=== PATIENT | male | born 1940 | race African-American/Black ===

== ENCOUNTER 2017-01-12 23:52 | Emergency (ER) | payer MEDICARE, OTHER ==
[~2017-01-12 23:52] MED LIST: *UNABLE1; AMB5 PO; ASAB PO; COREG12 PO; COREG25 PO; COREG6 PO; HALF81 PO; L40 PO; L80 PO; MIRALAXPKT PO; MIRAPEX125 PO; NEUPRO 4MG4 MG/24 HR TOP; NORCO1 TA1 PO; PRAVACHOL40 MG PO; SIN-CR PO; TUMSROLL PO; ZOFRAN4 PO; ZOFRANODT8 PO
[2017-01-13 03:20] LABS: BASOPHILS 0.3 %; BASOPHILS ABSOLUTE 0.02 10/3/uL (0.0-0.16); EOSINOPHILS 1.8 %; EOSINOPHILS ABSOLUTE 0.11 10/3/uL (0.0-0.53); ER CBC TAT 0 Hrs 05 Mins; HEMATOCRIT 29.9 % (40.0-51.0); HEMOGLOBIN 10.1 g/dL (13.6-17.8); IMMATURE GRANULOCYTES 0.2 %; IMMATURE GRANULOCYTES ABSOLUTE 0.01 10/3/uL (0.0-0.11); LYMPHOCYTES 32.7 %; LYMPHOCYTES ABSOLUTE 1.98 10/3/uL (0.67-4.30); MEAN CORPUS HGB CONC 33.8 g/dL (32.0-36.0); MEAN CORPUSCULAR HEMOGLOB 33.1 pg (26.0-34.0); MEAN PLATELET VOLUME 9.4 fL (9.2-13.0); MONOCYTES 5.8 %; MONOCYTES ABSOLUTE 0.35 10/3/uL (0.21-1.20); NEUTROPHILS 59.2 %; NEUTROPHILS ABSOLUTE 3.59 10/3/uL (2.02-8.40); PLATELET COUNT 237 10/3/uL (150-400); RBC DISTRIBUTION WIDTH 13.2 % (12.0-16.0); RED CELL COUNT 3.05 10/6/uL (4.7-6.1); WHITE BLOOD CELLS 6.1 10/3/uL (4.5-10.5)
[2017-01-13 03:21] LABS: MANUAL DIFF NO %
[2017-01-13 03:36] LABS: INTERNATIONAL NORMAL RATI 1.2 UNITS (-); PARTIAL THROMBO TIME 32.9 SEC (22.5-37.2); PROTIME (NOT ORD) 14.6 SEC (12.0-14.5)
[2017-01-13 03:38] LABS: CALCIUM, SERUM 8.7 MG/DL (8.5-10.4); CHLORIDE, SERUM 104 MMOL/L (96-112); CO2 (CARBON DIOXIDE) 30 MMOL/L (24-34); GLUCOSE, SERUM 96 MG/DL (60-99); POTASSIUM, SERUM 5.3 MMOL/L (3.5-5.3); SODIUM, SERUM 142 MMOL/L (135-148)
[2017-01-13 03:41] LABS: BUN (BLOOD UREA NITROGEN) 45 MG/DL (6-23); GFR AFRICAN AMERICAN 6 ML/MIN (>=60); GFR NON AFRICAN AMERICAN 5 ML/MIN (>=60)
[2017-01-13 03:42] LABS: CHEST PAIN PROFILE TAT 0 Hrs 27 Mins; TROPONIN I 0.05 NG/ML (<0.05)
== END 2017-01-13 05:35 | disposition home or self-care (01) ==
LOC: ER 23:52
PROVIDERS: Specialist
DX: I12.0 Hypertensive chronic kidney disease with stage 5 chronic kidney disease or end stage renal disease (principal); N18.6 End stage renal disease; D63.8 Anemia in other chronic diseases classified elsewhere; G20 Parkinson's disease; Z79.82 Long term (current) use of aspirin; Z99.2 Dependence on renal dialysis; Z79.899 Other long term (current) drug therapy
CPT/HCPCS: 70450; 71010; 80048; 83735; 84484; 85025; 85610; 85730; 93005; 99285

== ENCOUNTER 2017-03-03 16:52 | Inpatient (IN) | payer MEDICARE, OTHER ==
--- NOTE | ~2017-03-03 | DS ---
Discharge Summary [facility] [address] [facility] [address] [place]. [address] NAME: BHAVNA SCHAFER : 42 STATUS : DIS IN PAT#: [id number] AGE: 76 ADM/REG DATE : 03/05/17 MR#: [id number] REPORT SERV DATE: 03/27/17 DICTATED BY: JORGE CARD DATE: 03/27/17 REPORT STATUS : Draft TRANSCRIBED BY: TORY DATE: 03/27/17 Data Collection from hospitalization DISCHARGE DIAGNOSIS(ES): 1. Parkinson disease with severe debility symptoms. 2. Vox-bpnwppy-ivzwydnxq diabetes mellitus. 3. Hypertension. 4. End-stage renal disease. CONSULTATIONS: Erica Wren DNP, ACNP-BC PROCEDURES PERFORMED: None. MEDICATIONS: Aspirin 81 mg daily every morning, Dulcolax 10 mg per rectum daily, Coreg 12.5 mg twice a day as instructed, vitamin B12 of 1000 mcg sublingually daily, CoQ10 of 200 mg daily, multivitamins with minerals one tablet daily, Theragran one tablet daily, Neupro 4 mg topically at bedtime, Tylenol 650 mg as needed, Dulcolax 10 mg per rectum daily as needed, and Zofran 4 mg at bedtime as needed. CONDITION AT DISCHARGE: Stable. DISPOSITION: The patient was discharged to [facility] with diet and activities as instructed. HOSPITAL COURSE: This is a 76-year-old man who dialyzes on Mondays, Wednesdays, and Fridays via a left upper arm AV fistula. He has severe Parkinson disease and wears a Neupro patch. He had had some upward titration of his patch recently. Evidently, additional parkinsonian medications were tried, but he developed nausea. The patch was increased to try and help with his symptoms. He has had global weakness over the past few days and had missed dialysis on the day of this admission. He denied any nausea, vomiting, or diarrhea. He denied any focal weakness. He said that he was just globally weak and difficult to ambulate. He was admitted to the hospital at this time for further evaluation and treatment. Upon admission, we were concerned that upward titration of his Neupro patch may be the cause of his global weakness. No other focal lesion was yet to be found. Dialysis would be performed the following day. We were going to check orthostatic vital signs and thyroid function studies. Repeat troponin would be obtained the following morning. Home medications were continued for now. The patient was seen in consultation by Erica Wren regarding Parkinson disease and the recent onset of weakness. The patient sees Dr. Louis Zhu. He had been diagnosed with Parkinson disease four or five years ago. The patient had tried carbidopa and levodopa but was intolerant of this medication. It caused significant nausea and vomiting. He had tried Mirapex and Requip but was unable to tolerate those medications. He was currently on a Neupro patch and seemed to be doing fairly well with this medication. His patch had been increased about three weeks ago, and he gradually seemed to be getting "weaker." He also complained of more nausea. The patient said that he started to have more movement in his right arm and lower jaw. He was felt to be mildly anemic with a hemoglobin of 10.8 and hematocrit of 32. Creatinine level was 8.46. Troponin Discharge Summary [address] [address] NAME: BHAVNA SCHAFER : 42 STATUS : DIS IN PAT#: [id number] AGE: 76 ADM/REG DATE : 03/05/17 MR#: [id number] REPORT SERV DATE: 03/27/17 DICTATED BY: JORGE CARD DATE: 03/27/17 REPORT STATUS : Draft TRANSCRIBED BY: TORY DATE: 03/27/17 was 0.07 and 0.12 consecutively. The Neupro patch was decreased due to his intolerance, dyskinesia, and nausea. If the patient was underdosed by the following day, we would advance his patch dosing up to 6 mg per day. The patient was instructed to follow up on an outpatient basis with Dr. Zhu for further evaluation and dosage changes. Orthostatic vital signs were checked. The patient was evaluated by Physical Therapy. The patient became a full admit on the . The following day, there was some mild improvement in his weakness according to the patient, but not much. He has left dyskinesia, on Neupro 4 mg per day. He had mild lower extremity edema. It was difficult to tell if the patient's disease was progressively worsening. It was felt that it would be best to evaluate this when the patient was well as an outpatient. On the , hemodialysis therapy was performed. His lungs remained clear. He had less edema. He had no new complaints. The following day, he was given something for his constipation. His abdomen was soft and nontender. He had decreased breath sounds in his bases. It was felt that he would need rehab. On 03/09/2017, he had no new complaints. He had not had a bowel movement in about five days. He remained stable over the next couple of days. He seemed to have good pain control. He had no chest pain, nausea, or vomiting. It was felt that it would be unsafe to care for himself at home. Discharge planning was performed. Hemodialysis therapy continued. On 03/13/2017, he had no acute complaints. He was alert and cooperative. He had no edema. Discharge instructions were given. Due to his improved and stable condition, he was discharged to [facility] with the above-stated instructions. Information collected by: Makenna Hernadez I submit the above information as my discharge summary. TG/TORY Jorge Card M.D. / [id number] CC: Annie Olsen [facility]
--- NOTE | ~2017-03-03 | HP ---
History And Physical [place] [id number] [facility] [address] [place]. [address] NAME: BHAVNA SCHAFER : 42 STATUS : ADM Juan Ramon PAT#: [id number] AGE: 76 ADM/REG DATE : 03/03/17 MR#: [id number] REPORT SERV DATE: 03/04/17 DICTATED BY: BEAU NAM V. DATE: 03/03/17 REPORT STATUS : Draft TRANSCRIBED BY: MODDeirdre DATE: 03/03/17 DATE OF ADMISSION: 03/03/2017 CHIEF COMPLAINT: Global weakness. HISTORY OF PRESENT ILLNESS: Mr. Schafer is a 76-year-old gentleman, who dialyzes Friday, Friday, Friday at the [facility] on [address] via left upper arm AV fistula. He has severe Parkinson disease and wears a Neupro patch. He has had some upward titration of this patch recently. Evidently additional parkinsonian medications were tried, but he developed nausea. The patch was increased to try to help with his symptoms. He has had global weakness for the last few days and had missed a dialysis today. Denies any nausea, vomiting, or diarrhea. Denies any focal weakness. Just states he is globally weak and difficult to ambulate. PAST MEDICAL HISTORY: 1. ESRD. 2. Parkinson disease. 3. Hypertension. 4. Diet-controlled diabetes. PAST SURGICAL HISTORY: Includes left upper arm AV fistula. SOCIAL HISTORY: He is not . Does not drink alcohol. Lives alone. FAMILY HISTORY: Remarkable for diabetes in his father. ALLERGIES: NO KNOWN DRUG ALLERGIES. OUTPATIENT MEDICATION: List includes enteric-coated aspirin 325 mg daily, Coreg twice daily, multivitamin, MiraLAX as needed, and Neupro patch, dose needs to be confirmed with the clinic pack of his dialysis clinic, however. REVIEW OF SYSTEMS: Negative, except as described above. PHYSICAL EXAMINATION: VITAL SIGNS: Temperature is 98.8, heart rate 69, blood pressure 143/66. GENERAL: He is a pleasant, elderly gentleman with no increased work of breathing. HEENT: Pupils equal, round, and reactive to light. Sclerae are anicteric. Oropharynx is clear with no lesions. NECK: Trachea midline. No thyromegaly. No supraclavicular nodes. No axillary lymph nodes. CHEST: Generally clear to auscultation with equal bilateral breath sounds. CARDIOVASCULAR: Regular rate and rhythm. No rub. ABDOMEN: Soft, nontender, nondistended. Bowel sounds are present. No hepatosplenomegaly. No lower extremity edema. History And Physical [address] [place]. [address] NAME: BHAVNA SCHAFER : 42 STATUS : ADM Juan Ramon PAT#: [id number] AGE: 76 ADM/REG DATE : 03/03/17 MR#: [id number] REPORT SERV DATE: 03/04/17 DICTATED BY: BEAU NAM V. DATE: 03/03/17 REPORT STATUS : Draft TRANSCRIBED BY: TORY DATE: 03/03/17 SKIN: Warm and dry. No rash or lesions. MUSCULOSKELETAL: No joint effusions or tenderness was appreciated in knees or ankles bilaterally. NEUROLOGICAL: He was awake and alert. Strength was symmetric throughout. Also remarkable on ENT exam, he had slightly swollen lower lip, where he did hit on accident earlier. Denies any seizure activity. LABORATORIES AND IMAGING: Chest x-ray by report was unremarkable. White count 10.9, BUN and creatinine of 61 and 13.4, potassium 4.7. Troponin was 0.07. IMPRESSION: A 76-year-old gentleman with end-stage renal disease and global weakness with history of severe Parkinson disease. I am concerned that upward titration of his Neupro patch may be the adwoa of his global weakness. No other focal lesion has yet to be found. Neurology may very well need to comment on his parkinsonian medication dosages. We also need to confirm his actual dose as there was a recent dose increase. I believe his neurologist is Dr. Zhu at [facility]. PLAN: 1. Dialysis tomorrow as he missed his treatment on Friday. 2. Check orthostatic vital signs. 3. Check thyroid function studies. 4. Repeat troponin in the morning. 5. Continue home medications for now. 6. Have PT to evaluate and treat. CP/TORY eBau Nam M.D. / [id number] CC: Tanmay Russo M.D.
--- NOTE | ~2017-03-03 | CN ---
Consultation Report [facility] [address] . [address] NAME: BHAVNA SCHAFER : 42 STATUS : ADM IN PAT#: [id number] AGE: 76 ADM/REG DATE : 03/05/17 MR#: [id number] REPORT SERV DATE: 03/05/17 DICTATED BY: ERICA PAUL DATE: 03/05/17 REPORT STATUS : Draft TRANSCRIBED BY: MODL DATE: 03/05/17 NEUROLOGY CONSULTATION DATE OF CONSULTATION: 03/05/2017 REASON FOR CONSULTATION: Parkinson disease and recent onset of weakness. PRIMARY CARE PHYSICIAN: None. DECKHAND CRAB BOAT: Dr. Russo. NEUROLOGIST: Dr. Louis Zhu. HISTORY OF PRESENT ILLNESS: The patient is a 76-year-old male, who was diagnosed with Parkinson disease four to five years ago. He sees Dr. Louis Zhu, who manages his medications. The patient has tried carbidopa, levodopa, but is intolerant of this medication. It causes significant nausea and vomiting. He has tried some of the dopamine agonist, which include Mirapex and Requip. He was also unable to tolerate those medications. The patient is currently on the Neupro patch and seemed to be doing fairly well on this medication at 6 mg a day. Three weeks ago his patch was increased to 8 mg a day, and he gradually seemed to get "weaker." He also started to complain of more nausea. When questioned more extensively, the patient stated that he started to have more movement in his right arm and lower jaw. Today, the patient underwent hemodialysis and the history was obtained while he was on hemodialysis. He stated that he felt really bad and felt it was partially due to the medication change. PAST MEDICAL HISTORY: End-stage renal disease, Parkinson disease, hypertension, diabetes (diet controlled). PAST SURGICAL HISTORY: AV fistula placement in the left arm. MEDICATIONS: Home medication list includes aspirin 325 mg daily, Coreg 25 mg b.i.d., multivitamin daily, MiraLAX one packet daily, and Neupro patch 8 mg per 24 hours topically. ALLERGIES/INTOLERANCES: Carbidopa, levodopa. SOCIAL HISTORY: The patient is single. He lives alone. He has four children. He is disabled. He does not smoke, drink alcohol, or use recreational drugs. FAMILY HISTORY: The patient's mother at the age of 91 from cancer. His father at the age of 71, cause unknown. He has one brother, who drowned. He has one brother and one sister, who suffer from cancer. Consultation Report [place] [id number] . [address] NAME: BHAVNA SCHAFER : 42 STATUS : ADM IN PAT#: [id number] AGE: 76 ADM/REG DATE : 03/05/17 MR#: [id number] REPORT SERV DATE: 03/05/17 DICTATED BY: ERICA PAUL DATE: 03/05/17 REPORT STATUS : Draft TRANSCRIBED BY: TORY DATE: 03/05/17 REVIEW OF SYSTEMS: For pertinent positives, please refer to HPI. PHYSICAL EXAMINATION: VITAL SIGNS: The patient is a 76-year-old male, who stands 5 feet 4 inches tall and weighs 162 pounds. He is afebrile. Heart rate 61, respiratory rate 20, O2 saturations on room air 99%, blood pressure is 123/58. NEURO: The patient is alert and oriented x4. However, he is severely hypophonic and at times difficult to understand. He is slightly dysarthric (chronic). He has hypomimia, diminished blink response, bradykinesia, and bradyphrenia. The patient has significant tremor of the lower jaw with dyskinetic type movements of the mouth. He also has significant rest tremor in the right hand with a pill-rolling tremor in his thumb and first finger. He does have dyskinetic movement during the exam. No cranial nerve deficits. Pupils are 4 mm. PERRLA. The patient does have rigidity and cogwheeling in the left arm. Very minimal rigidity in the right arm. The patient was unable to get up and ambulate since he was receiving dialysis. NECK: No carotid bruits, JVD, thyromegaly. CHEST: Lung sounds are clear. Diminished in the bases. CARDIAC: Regular rate and rhythm. LABORATORY DATA: CBC is normal. Mildly anemic with a hemoglobin of 10.8 and hematocrit 32. BMP shows BUN of 34 and creatinine 8.46. Troponin 0.07 and 0.12 consecutively. ASSESSMENT/PLAN: Parkinson disease. At this point, I will decrease the patient's Neupro patch to 4 mg a day due to his intolerance, dyskinesia, and nausea. If the patient is under dose by tomorrow, we will advance his patch dosing up to 6 mg a day. The patient will follow up on an outpatient basis with Dr. Zhu for further evaluation and dosage changes. Thank you again for including us in consultation. We will follow the patient tomorrow to see how he is doing. ANDRY/TORY Erica Paul DNP, ACNP-BC / [id number] CC: Annie Olsen Eze C Ravi Chander, M.D.
[2017-03-03 17:21] LABS: BASOPHILS 0.2 %; BASOPHILS ABSOLUTE 0.02 10/3/uL (0.0-0.16); EOSINOPHILS 0.1 %; EOSINOPHILS ABSOLUTE 0.01 10/3/uL (0.0-0.53); HEMOGLOBIN 11.3 g/dL (13.6-17.8); IMMATURE GRANULOCYTES 0.3 %; IMMATURE GRANULOCYTES ABSOLUTE 0.03 10/3/uL (0.0-0.11); LYMPHOCYTES 7.7 %; LYMPHOCYTES ABSOLUTE 0.84 10/3/uL (0.67-4.30); MEAN CORPUS HGB CONC 33.3 g/dL (32.0-36.0); MEAN CORPUSCULAR HEMOGLOB 32.1 pg (26.0-34.0); MEAN CORPUSCULAR VOLUME 96.3 fL (80-100); MEAN PLATELET VOLUME 9.4 fL (9.2-13.0); MONOCYTES 5.5 %; NEUTROPHILS 86.2 %; NEUTROPHILS ABSOLUTE 9.42 10/3/uL (2.02-8.40); RBC DISTRIBUTION WIDTH 14.1 % (12.0-16.0)
[2017-03-03 17:22] LABS: ER CBC TAT 0 Hrs 08 Mins; HEMATOCRIT 33.9 % (40.0-51.0); MANUAL DIFF NO %; PLATELET COUNT 294 10/3/uL (150-400); RED CELL COUNT 3.52 10/6/uL (4.7-6.1); WHITE BLOOD CELLS 10.9 10/3/uL (4.5-10.5)
[2017-03-03 17:37] LABS: CALCIUM, SERUM 9.2 MG/DL (8.5-10.4); CHLORIDE, SERUM 99 MMOL/L (96-112); CO2 (CARBON DIOXIDE) 27 MMOL/L (24-34); POTASSIUM, SERUM 4.7 MMOL/L (3.5-5.3); SGOT(AST) 23 U/L (5-40); SGPT(ALT) 18 U/L (5-65); SODIUM, SERUM 139 MMOL/L (135-148); TOTAL BILIRUBIN 0.5 MG/DL (0-1.2)
[2017-03-03 17:39] LABS: A/G RATIO 0.9 (0.7-1.9); ALBUMIN 3.8 G/DL (3.5-5.0); ALKALINE PHOSPHATASE 63 U/L (45-117); BUN (BLOOD UREA NITROGEN) 61 MG/DL (6-23); GFR AFRICAN AMERICAN 4 ML/MIN (>=60); GFR NON AFRICAN AMERICAN 3 ML/MIN (>=60); GLOBULIN 4.1 G/DL (2.5-4.1); GLUCOSE, SERUM 148 MG/DL (60-99); TOTAL PROTEIN 7.9 G/DL (6.0-8.5)
[2017-03-03 17:40] LABS: TROPONIN I 0.07 NG/ML (<0.05)
[2017-03-03] MEDS ORDERED: COREG25 PO (21:01)
[2017-03-03] MEDS ORDERED: NEUPRO 6MG6 MG/24 HR TOP (21:01)
[2017-03-03] MEDS ORDERED: MIRALAX POWDER1 PKT PO (21:02)
[2017-03-03] MEDS ORDERED: ASAB PO (21:02)
[2017-03-03] MEDS ORDERED: MULTIVIT/MIN PO (21:02)
[2017-03-03] MEDS ORDERED: *UNABLE1 (21:04)
[2017-03-04 06:48] LABS: BASOPHILS 0.2 %; BASOPHILS ABSOLUTE 0.02 10/3/uL (0.0-0.16); EOSINOPHILS 0.8 %; EOSINOPHILS ABSOLUTE 0.07 10/3/uL (0.0-0.53); HEMATOCRIT 31.8 % (40.0-51.0); HEMOGLOBIN 10.7 g/dL (13.6-17.8); IMMATURE GRANULOCYTES 0.2 %; IMMATURE GRANULOCYTES ABSOLUTE 0.02 10/3/uL (0.0-0.11); LYMPHOCYTES 18.8 %; LYMPHOCYTES ABSOLUTE 1.57 10/3/uL (0.67-4.30); MEAN CORPUS HGB CONC 33.6 g/dL (32.0-36.0); MEAN CORPUSCULAR HEMOGLOB 32.5 pg (26.0-34.0); MEAN CORPUSCULAR VOLUME 96.7 fL (80-100); MEAN PLATELET VOLUME 9.1 fL (9.2-13.0); MONOCYTES 7.7 %; MONOCYTES ABSOLUTE 0.64 10/3/uL (0.21-1.20); NEUTROPHILS 72.3 %; NEUTROPHILS ABSOLUTE 6.01 10/3/uL (2.02-8.40); PLATELET COUNT 272 10/3/uL (150-400); RBC DISTRIBUTION WIDTH 13.9 % (12.0-16.0); RED CELL COUNT 3.29 10/6/uL (4.7-6.1); WHITE BLOOD CELLS 8.3 10/3/uL (4.5-10.5)
[2017-03-04 06:50] LABS: MANUAL DIFF NO %
[2017-03-04 07:01] LABS: ALBUMIN 3.4 G/DL (3.5-5.0); CALCIUM, SERUM 9.3 MG/DL (8.5-10.4); CHLORIDE, SERUM 99 MMOL/L (96-112); CO2 (CARBON DIOXIDE) 27 MMOL/L (24-34); FREE T4 0.93 NG/DL (0.76-1.46); GLOBULIN 3.3 G/DL (2.5-4.1); PHOSPHORUS, SERUM 6.3 MG/DL (2.5-4.5); SGOT(AST) 42 U/L (5-40); SGPT(ALT) 18 U/L (5-65); SODIUM, SERUM 137 MMOL/L (135-148); TOTAL BILIRUBIN 0.5 MG/DL (0-1.2); TOTAL PROTEIN 6.7 G/DL (6.0-8.5)
[2017-03-04 07:06] LABS: ALKALINE PHOSPHATASE 45 U/L (45-117); BUN (BLOOD UREA NITROGEN) 68 MG/DL (6-23); GFR AFRICAN AMERICAN 3 ML/MIN (>=60); GFR NON AFRICAN AMERICAN 3 ML/MIN (>=60); GLUCOSE, SERUM 96 MG/DL (60-99); TROPONIN I 0.12 NG/ML (<0.05)
[2017-03-04] MEDS ORDERED: CO Q-10200 MG PO (09:05)
[2017-03-04] MEDS ORDERED: CARNITOR PO (09:06)
[2017-03-04] MEDS ORDERED: PRIN10 PO (09:07)
[2017-03-04] MEDS ORDERED: VITAMIN B-121000 MC1 SL (09:10)
[2017-03-04] MEDS ORDERED: SINCR25100 PO (09:10)
[2017-03-04] MEDS ORDERED: ZOFRAN4 PO (09:11)
[2017-03-04] MEDS ORDERED: TUMSROLL PO (09:11)
[2017-03-05 06:14] LABS: BASOPHILS 0.3 %; BASOPHILS ABSOLUTE 0.02 10/3/uL (0.0-0.16); EOSINOPHILS 2.3 %; EOSINOPHILS ABSOLUTE 0.15 10/3/uL (0.0-0.53); HEMOGLOBIN 10.8 g/dL (13.6-17.8); IMMATURE GRANULOCYTES 0.3 %; IMMATURE GRANULOCYTES ABSOLUTE 0.02 10/3/uL (0.0-0.11); LYMPHOCYTES 21.4 %; LYMPHOCYTES ABSOLUTE 1.42 10/3/uL (0.67-4.30); MANUAL DIFF NO %; MEAN CORPUS HGB CONC 33.8 g/dL (32.0-36.0); MEAN CORPUSCULAR HEMOGLOB 33.2 pg (26.0-34.0); MEAN CORPUSCULAR VOLUME 98.5 fL (80-100); MEAN PLATELET VOLUME 9.2 fL (9.2-13.0); MONOCYTES 11.4 %; MONOCYTES ABSOLUTE 0.76 10/3/uL (0.21-1.20); NEUTROPHILS 64.3 %; NEUTROPHILS ABSOLUTE 4.28 10/3/uL (2.02-8.40); PLATELET COUNT 263 10/3/uL (150-400); RBC DISTRIBUTION WIDTH 14.1 % (12.0-16.0); RED CELL COUNT 3.25 10/6/uL (4.7-6.1); WHITE BLOOD CELLS 6.7 10/3/uL (4.5-10.5)
[2017-03-05 06:28] LABS: ALBUMIN 3.4 G/DL (3.5-5.0); BUN (BLOOD UREA NITROGEN) 34 MG/DL (6-23); CALCIUM, SERUM 9.1 MG/DL (8.5-10.4); CHLORIDE, SERUM 103 MMOL/L (96-112); CO2 (CARBON DIOXIDE) 28 MMOL/L (24-34); CREATININE 8.46 MG/DL (0.70-1.30); GFR AFRICAN AMERICAN 6 ML/MIN (>=60); GFR NON AFRICAN AMERICAN 6 ML/MIN (>=60); GLUCOSE, SERUM 96 MG/DL (60-99); PHOSPHORUS, SERUM 3.9 MG/DL (2.5-4.5); POTASSIUM, SERUM 4.4 MMOL/L (3.5-5.3); SODIUM, SERUM 139 MMOL/L (135-148)
[2017-03-07 15:56] LABS: BASOPHILS 0.4 %; BASOPHILS ABSOLUTE 0.02 10/3/uL (0.0-0.16); EOSINOPHILS 1.6 %; EOSINOPHILS ABSOLUTE 0.09 10/3/uL (0.0-0.53); HEMATOCRIT 32.5 % (40.0-51.0); HEMOGLOBIN 10.9 g/dL (13.6-17.8); IMMATURE GRANULOCYTES 0.2 %; IMMATURE GRANULOCYTES ABSOLUTE 0.01 10/3/uL (0.0-0.11); LYMPHOCYTES 19.2 %; LYMPHOCYTES ABSOLUTE 1.09 10/3/uL (0.67-4.30); MANUAL DIFF NO %; MEAN CORPUS HGB CONC 33.5 g/dL (32.0-36.0); MEAN CORPUSCULAR HEMOGLOB 32.5 pg (26.0-34.0); MEAN PLATELET VOLUME 9.7 fL (9.2-13.0); MONOCYTES ABSOLUTE 0.51 10/3/uL (0.21-1.20); NEUTROPHILS 69.6 %; NEUTROPHILS ABSOLUTE 3.95 10/3/uL (2.02-8.40); PLATELET COUNT 272 10/3/uL (150-400); RBC DISTRIBUTION WIDTH 14.2 % (12.0-16.0); RED CELL COUNT 3.35 10/6/uL (4.7-6.1); WHITE BLOOD CELLS 5.7 10/3/uL (4.5-10.5)
[2017-03-07 16:08] LABS: ALBUMIN 3.2 G/DL (3.5-5.0); CALCIUM, SERUM 8.8 MG/DL (8.5-10.4); CHLORIDE, SERUM 100 MMOL/L (96-112); CO2 (CARBON DIOXIDE) 26 MMOL/L (24-34); CREATININE 8.58 MG/DL (0.70-1.30); GFR AFRICAN AMERICAN 6 ML/MIN (>=60); GFR NON AFRICAN AMERICAN 5 ML/MIN (>=60); POTASSIUM, SERUM 4.3 MMOL/L (3.5-5.3); SODIUM, SERUM 137 MMOL/L (135-148)
[2017-03-07 16:09] LABS: BUN (BLOOD UREA NITROGEN) 48 MG/DL (6-23); GLUCOSE, SERUM 140 MG/DL (60-99); PHOSPHORUS, SERUM 4.9 MG/DL (2.5-4.5)
[2017-03-10 07:01] LABS: BASOPHILS 0.4 %; BASOPHILS ABSOLUTE 0.03 10/3/uL (0.0-0.16); EOSINOPHILS 2.1 %; EOSINOPHILS ABSOLUTE 0.15 10/3/uL (0.0-0.53); HEMOGLOBIN 12.2 g/dL (13.6-17.8); IMMATURE GRANULOCYTES 0.1 %; IMMATURE GRANULOCYTES ABSOLUTE 0.01 10/3/uL (0.0-0.11); LYMPHOCYTES 27.2 %; LYMPHOCYTES ABSOLUTE 1.97 10/3/uL (0.67-4.30); MEAN CORPUS HGB CONC 33.4 g/dL (32.0-36.0); MEAN CORPUSCULAR HEMOGLOB 32.4 pg (26.0-34.0); MEAN CORPUSCULAR VOLUME 96.8 fL (80-100); MEAN PLATELET VOLUME 10.5 fL (9.2-13.0); MONOCYTES 6.4 %; MONOCYTES ABSOLUTE 0.46 10/3/uL (0.21-1.20); NEUTROPHILS 63.8 %; NEUTROPHILS ABSOLUTE 4.62 10/3/uL (2.02-8.40); PLATELET COUNT 258 10/3/uL (150-400); RBC DISTRIBUTION WIDTH 14.1 % (12.0-16.0); RED CELL COUNT 3.77 10/6/uL (4.7-6.1); WHITE BLOOD CELLS 7.2 10/3/uL (4.5-10.5)
[2017-03-10 07:02] LABS: HEMATOCRIT 36.5 % (40.0-51.0); MANUAL DIFF NO %
[2017-03-10 07:09] LABS: ALBUMIN 3.6 G/DL (3.5-5.0); BUN (BLOOD UREA NITROGEN) 71 MG/DL (6-23); CALCIUM, SERUM 9.4 MG/DL (8.5-10.4); CHLORIDE, SERUM 97 MMOL/L (96-112); CO2 (CARBON DIOXIDE) 24 MMOL/L (24-34); CREATININE 9.07 MG/DL (0.70-1.30); GFR AFRICAN AMERICAN 6 ML/MIN (>=60); GFR NON AFRICAN AMERICAN 5 ML/MIN (>=60); GLUCOSE, SERUM 73 MG/DL (60-99); PHOSPHORUS, SERUM 5.1 MG/DL (2.5-4.5); POTASSIUM, SERUM 5.9 MMOL/L (3.5-5.3); SODIUM, SERUM 132 MMOL/L (135-148)
[2017-03-12 06:26] LABS: BASOPHILS 0.4 %; BASOPHILS ABSOLUTE 0.03 10/3/uL (0.0-0.16); EOSINOPHILS 2.2 %; EOSINOPHILS ABSOLUTE 0.15 10/3/uL (0.0-0.53); HEMATOCRIT 35.8 % (40.0-51.0); HEMOGLOBIN 12.2 g/dL (13.6-17.8); IMMATURE GRANULOCYTES 0.3 %; IMMATURE GRANULOCYTES ABSOLUTE 0.02 10/3/uL (0.0-0.11); LYMPHOCYTES 28.5 %; LYMPHOCYTES ABSOLUTE 1.97 10/3/uL (0.67-4.30); MEAN CORPUS HGB CONC 34.1 g/dL (32.0-36.0); MEAN CORPUSCULAR HEMOGLOB 33.2 pg (26.0-34.0); MEAN CORPUSCULAR VOLUME 97.5 fL (80-100); MEAN PLATELET VOLUME 9.7 fL (9.2-13.0); MONOCYTES 6.1 %; MONOCYTES ABSOLUTE 0.42 10/3/uL (0.21-1.20); NEUTROPHILS 62.5 %; NEUTROPHILS ABSOLUTE 4.33 10/3/uL (2.02-8.40); PLATELET COUNT 292 10/3/uL (150-400); RBC DISTRIBUTION WIDTH 13.9 % (12.0-16.0); RED CELL COUNT 3.67 10/6/uL (4.7-6.1); WHITE BLOOD CELLS 6.9 10/3/uL (4.5-10.5)
[2017-03-12 06:27] LABS: MANUAL DIFF NO %
[2017-03-12 06:41] LABS: ALBUMIN 3.7 G/DL (3.5-5.0); BUN (BLOOD UREA NITROGEN) 74 MG/DL (6-23); CALCIUM, SERUM 8.9 MG/DL (8.5-10.4); CHLORIDE, SERUM 96 MMOL/L (96-112); CO2 (CARBON DIOXIDE) 24 MMOL/L (24-34); GLUCOSE, SERUM 79 MG/DL (60-99); SODIUM, SERUM 131 MMOL/L (135-148)
[2017-03-12 06:50] LABS: CREATININE 8.42 MG/DL (0.70-1.30); GFR AFRICAN AMERICAN 6 ML/MIN (>=60); GFR NON AFRICAN AMERICAN 6 ML/MIN (>=60); PHOSPHORUS, SERUM 7.2 MG/DL (2.5-4.5); POTASSIUM, SERUM 6.3 MMOL/L (3.5-5.3)
== END 2017-03-13 13:51 | DRG 56 ==
LOC: ER 16:52 → 7NO 21:04
PROVIDERS: Emergency Medicine; Internal Medicine Nephrology; Nurse Practitioner
PROC: 5A1D60Z (ICD-10-PCS; principal; 2017-03-04)
DX: G20 Parkinson's disease (principal); N18.6 End stage renal disease; I12.0 Hypertensive chronic kidney disease with stage 5 chronic kidney disease or end stage renal disease; E11.22 Type 2 diabetes mellitus with diabetic chronic kidney disease; E87.5 Hyperkalemia; Z79.82 Long term (current) use of aspirin; Z83.3 Family history of diabetes mellitus; Z88.8 Allergy status to other drugs, medicaments and biological substances; Z99.2 Dependence on renal dialysis
CPT/HCPCS: 71010; 80053; 80069; 81001; 82962; 83735; 84100; 84439; 84484; 85025; 87040; 93005; 97110-GP; 97116-GP; 97163-GP; 99285; A9270-GY; G0257; G8978-CK-GP; G8979-CJ-GP; J0360